=== PATIENT | female | born 1975 | race Caucasian/White ===

== ENCOUNTER 2019-12-13 10:21 | Emergency (ER) | payer OTHER ==
[~2019-12-13 10:21] MED LIST: LEVOTHYROXIN0.088 MG PO; MOT600 PO
[2019-12-13 14:08] VITALS: BP 131/73
== END 2019-12-13 14:08 | disposition home or self-care (01) ==
LOC: ED 10:21
DX: G89.18 Other acute postprocedural pain (principal); M79.662 Pain in left lower leg
CPT/HCPCS: J1885; Q0092